=== PATIENT | male | born 1980 | race Caucasian/White ===

== ENCOUNTER 2016-11-09 10:47 | Emergency (ER) | payer MEDICAID ==
[2016-11-09 11:30] LABS: BASOPHILS 0.4 % (0-2); EOSINOPHILS 0.2 % (0-7); HEMATOCRIT 46.9 % (42.0-54.0); HEMOGLOBIN 16.4 g/dL (13.5-17.5); IMMATURE GRANULOCYTES 0.2 % (0-5); LYMPHOCYTES 24.3 % (15-50); MCH 33.2 pg (26.0-34.0); MCV 94.9 fL (80.0-100.0); MEAN PLATELET VOLUME 10.1 fL (7.4-10.4); MONOCYTES 8.9 % (2-11); PLATELET COUNT 131 10x3/uL (130-400); RBC 4.94 10x6/uL (4.20-6.10); RDW 13.8 % (11.5-14.5); WBC 5.6 10x3/uL (4.8-10.8)
[2016-11-09 11:42] LABS: INR 0.91 (0.85-1.17); PROTIME 12.1 SECONDS (11.6-15.0)
[2016-11-09 11:43] LABS: APPEARANCE HAZY (CLEAR); BILIRUBIN NEGATIVE (NEGATIVE); COLOR DK YELLOW (YELLOW); GLUCOSE NEGATIVE (NEGATIVE); KETONE MODERATE mg/dL (NEGATIVE); LEUKOCYTE ESTERASE TRACE (NEGATIVE); NITRITE NEGATIVE (NEGATIVE); PH 5.5 (5.0-6.0); PROTEIN 1+ mg/dL (NEGATIVE); UROBILINOGEN NORMAL (NORMAL)
[2016-11-09 11:46] LABS: UDS - AMPHET NEGATIVE QUAL (NEGATIVE); UDS - BARB NEGATIVE QUAL (NEGATIVE); UDS - BENZO NEGATIVE QUAL (NEGATIVE); UDS - COCAINE NEGATIVE QUAL (NEGATIVE); UDS - METH NEGATIVE QUAL (NEGATIVE); UDS - OPIATE NEGATIVE QUAL (NEGATIVE); UDS - PCP NEGATIVE QUAL (NEGATIVE); UDS - THC POSITIVE QUAL (NEGATIVE)
[2016-11-09 11:46] LABS: ALBUMIN 4.1 g/dL (3.4-5.0); ALKALINE PHOSPHATASE 110 U/L (46-116); ALT (SGPT) 194 U/L (10-68); BILIRUBIN - TOTAL 0.58 mg/dL (0.2-1.3); CALC OSMOLALITY 282 mosm/kg (275-300); CALCIUM 8.5 mg/dL (8.5-10.1); CARBON DIOXIDE 24.5 mmol/L (21.0-32.0); CHLORIDE - SERUM 101 mmol/L (98-107); CREATININE - SERUM 0.7 mg/dL (0.6-1.3); GLUCOSE 194 mg/dL (74-106); POTASSIUM - SERUM 3.5 mmol/L (3.5-5.1); SODIUM 139 mmol/L (136-145); UREA NITROGEN 12 mg/dL (7-18); eGFR NON AFRICAN AMERICAN > 90 mL/min (90-120)
[2016-11-09 11:48] LABS: MAGNESIUM - SERUM 1.8 mg/dL (1.8-2.4)
[2016-11-09 11:48] LABS: BACTERIA MODERATE /hpf (NONE SEEN); CALCIUM OXALATE CRYSTALS OCC /hpf (NONE SEEN); EPITHELIAL CELLS OCC /hpf (0-5); GRANULAR CAST OCC /lpf (NONE SEEN); HYALINE CAST RARE /lpf (NONE SEEN); MUCUS >1+ /lpf (NONE SEEN)
== END 2016-11-09 16:20 | disposition home or self-care (01) ==
LOC: D.ER 10:47
PROVIDERS: Emergency Medicine
DX: F10.10 Alcohol abuse, uncomplicated (principal); F10.129 Alcohol abuse with intoxication, unspecified; R73.9 Hyperglycemia, unspecified; N39.0 Urinary tract infection, site not specified; I10 Essential (primary) hypertension

== ENCOUNTER 2018-10-24 15:36 | Emergency (ER) | payer SELFPAY ==
[~2018-10-24] VITALS: Ht 175.3 cm; Wt 75.0 kg
[2018-10-24 15:45] VITALS: Ht 175.3 cm; Wt 75.0 kg
[2018-10-24 16:13] LABS: BASOPHILS 0.3 % (0-2); EOSINOPHILS 0 % (0-7); HEMATOCRIT 40.3 % (42.0-54.0); HEMOGLOBIN 14.4 g/dL (13.5-17.5); LYMPHOCYTES 25.1 % (15-50); MCHC 35.7 g/dL (31.0-37.0); MCV 86.7 fL (80.0-100.0); MEAN PLATELET VOLUME 9.5 fL (7.4-10.4); MONOCYTES 5.7 % (2-11); NEUTROPHILS 68.9 % (40-80); RBC 4.65 10x6/uL (4.20-6.10); RDW 15.6 % (11.5-14.5); WBC 7.1 10x3/uL (4.8-10.8)
[2018-10-24 16:17] LABS: PLATELET COUNT 168 10x3/uL (130-400)
[2018-10-24 16:30] LABS: ALBUMIN 4.1 g/dL (3.4-5.0); ALKALINE PHOSPHATASE 134 U/L (46-116); ALT (SGPT) 115 U/L (10-68); BILIRUBIN - TOTAL 0.56 mg/dL (0.2-1.3); CALC OSMOLALITY 285 mosm/kg (275-300); CALCIUM 8.3 mg/dL (8.5-10.1); CARBON DIOXIDE 26.3 mmol/L (21.0-32.0); CHLORIDE - SERUM 102 mmol/L (98-107); CREATININE - SERUM 0.9 mg/dL (0.6-1.3); GLUCOSE 104 mg/dL (74-106); POTASSIUM - SERUM 3.8 mmol/L (3.5-5.1); PROTEIN - SERUM 7.6 g/dL (6.4-8.2); SODIUM 144 mmol/L (136-145); UREA NITROGEN 9 mg/dL (7-18); eGFR NON AFRICAN AMERICAN > 90 mL/min (90-120)
[2018-10-24 16:35] LABS: MAGNESIUM - SERUM 1.8 mg/dL (1.8-2.4)
[2018-10-24 17:26] VITALS: BP 149/96
== END 2018-10-24 17:26 | disposition home or self-care (01) ==
LOC: D.ER 15:36
PROVIDERS: Emergency Medicine
DX: F10.129 Alcohol abuse with intoxication, unspecified (principal)

== ENCOUNTER 2020-05-27 01:45 | Emergency (ER) | payer MEDICAID ==
[~2020-05-27] VITALS: Ht 175.3 cm; Wt 86.4 kg
[2020-05-27 01:51] VITALS: Ht 175.3 cm; Wt 86.4 kg
[2020-05-27] MEDS ORDERED: FOLIC ACID1 MG PO (01:57)
[2020-05-27 02:33] LABS: BASOPHILS 0.3 % (0-2); EOSINOPHILS 1.8 % (0-7); HEMATOCRIT 25.6 % (42.0-54.0); HEMOGLOBIN 8.6 g/dL (13.5-17.5); IMMATURE GRANULOCYTES 0.3 % (0-5); LYMPHOCYTE ABS# 1.79 10x3/uL (1.32-3.57); LYMPHOCYTES 19.9 % (15-50); MCH 30.7 pg (26.0-34.0); MCHC 33.6 g/dL (31.0-37.0); MCV 91.4 fL (80.0-100.0); MEAN PLATELET VOLUME 9.3 fL (7.4-10.4); MONOCYTES 5.2 % (2-11); NEUTROPHILS 72.5 % (40-80); PLATELET COUNT 195 10x3/uL (130-400)
[2020-05-27 02:39] LABS: CALC OSMOLALITY 270 mosm/kg (275-300); CALCIUM 8.2 mg/dL (8.5-10.1); CARBON DIOXIDE 25.7 mmol/L (21.0-32.0); CHLORIDE - SERUM 102 mmol/L (98-107); CREATININE - SERUM 0.9 mg/dL (0.6-1.3); GLUCOSE 120 mg/dL (74-106); SODIUM 136 mmol/L (136-145); UREA NITROGEN 7 mg/dL (7-18); eGFR NON AFRICAN AMERICAN > 90 mL/min (90-120)
[2020-05-27 02:40] LABS: APTT 36.4 SECONDS (22.8-39.4); INR 1.41 (0.85-1.17)
[2020-05-27 02:52] LABS: ALKALINE PHOSPHATASE 225 U/L (30-120); ALT (SGPT) 31 U/L (10-68); BILIRUBIN - TOTAL 3.53 mg/dL (0.2-1.3); CREATINE KINASE 26 UL (21-232); LIPASE 97 U/L (73-393); MAGNESIUM - SERUM 1.7 mg/dL (1.8-2.4); PRO BNP 151 pg/mL (0-125); PROTEIN - SERUM 6.7 g/dL (6.4-8.2)
[2020-05-27 03:12] LABS: KETONE NEGATIVE (NEGATIVE); NITRITE NEGATIVE (NEGATIVE); UROBILINOGEN NORMAL mg/dL (< 2)
[2020-05-27 03:13] LABS: BILIRUBIN 3+ (NEGATIVE)
[2020-05-27 03:26] LABS: UDS - AMPHET NEGATIVE QUAL (NEGATIVE); UDS - BARB NEGATIVE QUAL (NEGATIVE); UDS - BENZO POSITIVE QUAL (NEGATIVE); UDS - COCAINE NEGATIVE QUAL (NEGATIVE); UDS - OPIATE POSITIVE QUAL (NEGATIVE); UDS - PCP NEGATIVE QUAL (NEGATIVE); UDS - THC NEGATIVE QUAL (NEGATIVE)
[2020-05-27 04:20] VITALS: BP 96/55
== END 2020-05-27 05:17 | disposition home or self-care (01) ==
LOC: D.ER 01:45
PROVIDERS: Family Medicine
DX: K72.90 Hepatic failure, unspecified without coma (principal); R18.8 Other ascites; K74.60 Unspecified cirrhosis of liver; E87.6 Hypokalemia